=== PATIENT | female | born 2000 | race Caucasian/White ===

== ENCOUNTER 2022-06-12 11:24 | Observation (INO) | payer BC, MEDICAID ==
[~2022-06-12] VITALS: Ht 157.5 cm; Wt 61.7 kg
== END 2022-06-12 12:42 | disposition home or self-care (01) ==
LOC: MLD 11:24
PROVIDERS: ADMIT Obstetrics & Gynecology; ATTEND Obstetrics & Gynecology
DX: O26.893 Other specified pregnancy related conditions, third trimester (principal); R10.9 Unspecified abdominal pain; Z3A.35 35 weeks gestation of pregnancy
CPT/HCPCS: G0378